=== PATIENT | male | born 1955 | race Caucasian/White ===

== ENCOUNTER 2023-02-03 03:49 | Day surgery (SDC) | payer OTHER ==
[2023-01-30 14:11] VITALS: BMI 34.5
[2023-02-03 08:02] VITALS: RESP 18
[2023-02-03] MEDS ORDERED: MIDAZOLAM HCL 2 MG/2 ML SINGLE DOSE VIAL ONE (08:48)
[2023-02-03 10:59] VITALS: BP 162/80; PULSE 60; TEMP 97
== END 2023-02-03 10:50 | disposition home or self-care (01) ==
LOC: JASU-SURG 03:49
PROVIDERS: ATTEND Urology
PROC: 0TF4XZZ Fragmentation in Left Kidney Pelvis, External Approach (ICD-10-PCS; principal; 2023-02-03 09:30)
DX: N20.0 Calculus of kidney (principal)